=== PATIENT | male | born 1960 ===

== ENCOUNTER 2022-08-09 14:15 | Inpatient (IN) ==
[2022-08-09] MEDS ORDERED: ALBUTEROL/IPRATROPIUM 3 ML NEB RESP TX STA (14:51)
[2022-08-09] MEDS ORDERED: methylPREDNISolone SOD SUC 40 MG/1 ML VIAL IV STA (14:51)
[2022-08-09 15:19] LABS: Basophils # 0.1 10*3/uL (0.0-0.2); Basophils % 0.5 % (0.0-0.8); Eosinophils # 0.1 10*3/uL (0.0-0.87); Eosinophils % 0.8 % (0.00-10.9); Hematocrit 40.8 VOL% (42.0-52.0); Hemoglobin 13.3 GM/DL (14.0-18.0); Immature Granulocytes % 1.3 %; Immature Granulocytes Absolute 0.12 #; Lymphocytes % 11.1 % (21.2-54.2); Mean Corpuscular HGB Conc 32.6 GM/DL (32-36); Mean Platelet Volume 8.8 FL (9.6-12.0); Monocytes # 1.5 10*3/uL (0.11-0.8); Monocytes % 16.1 % (1.7-12.7); Neutrophils % 70.2 % (38.7-73.9); Platelet Count 251 T/CUMM (130-400); Red Blood Count 4.34 MC/CUMM (3.8-5.5); Red Cell Distribution Width 14.6 % (9.3-17.3); White Blood Count 9.1 T/CUMM (4-12)
[2022-08-09 15:29] LABS: Calcium 7.8 MG/DL (8.5-10.1); Osmolality,Calculated 259.7 MOS/KG (273-304); Potassium 3.9 MMOL/L (3.5-5.1)
[2022-08-09 15:48] LABS: Eosinophils 2 % (0-10); Lymphocytes 9 % (20-55); Total Cells Counted 100
[2022-08-09] MEDS ORDERED: cefTRIAXone 1,000 MG in SODIUM CHLORIDE 0.9% 100 ML IV STA (16:32)
[2022-08-09] MEDS ORDERED: CETIRIZINE 10 MG TABLET PO PRN (18:12)
[2022-08-09] MEDS ORDERED: AZITHROMYCIN INJ 500 MG in SODIUM CHLORIDE 0.9% 250 ML IV STA (18:14)
[2022-08-09] MEDS ORDERED: ALBUTEROL 2.5 MG/3 ML NEB RESP TX PRN (18:15)
[2022-08-09 18:27] LABS: Albumin 2.2 G/DL (3.4-5.0); Bilirubin,Direct 0.1 MG/DL (0.0-0.20); Bilirubin,Indirect 0.4 MG/DL (0.0-1.0); Bilirubin,Total 0.5 MG/DL (0.20-1.00); Total Protein 6.6 G/DL (6.4-8.2)
[2022-08-09] MEDS: ALBUTEROL/IPRATROPIUM 3 ML NEB RESP TX SCH (18:55)
[2022-08-09] MEDS: DOCUSATE SODIUM 100 MG CAPSULE PO SCH (20:13)
[2022-08-09] MEDS: MONTELUKAST 10 MG TABLET PO SCH (20:13)
[2022-08-09] MEDS: ENOXAPARIN 40 MG/0.4 ML SYRINGE SUBCUT SCH (20:14)
[2022-08-09] MEDS ORDERED: chlordiazePOXIDE 10 MG CAPSULE PO PRN (21:00)
[2022-08-09] MEDS: SODIUM CHLORIDE 0.9% 1,000 ML IV SCH (22:10)
[2022-08-09] MEDS: methylPREDNISolone SOD SUC 40 MG/1 ML VIAL IV SCH (23:09)
[2022-08-10] MEDS: ALBUTEROL/IPRATROPIUM 3 ML NEB RESP TX SCH ×4 (00:24→19:19)
[2022-08-10 01:44] LABS: Basophils % 0.2 % (0.0-0.8); Hematocrit 42.8 VOL% (42.0-52.0); Hemoglobin 13.8 GM/DL (14.0-18.0); Immature Granulocytes % 1.2 %; Immature Granulocytes Absolute 0.07 #; Lymphocytes # 0.3 10*3/uL (1.4-4.0); Lymphocytes % 4.7 % (21.2-54.2); Mean Corpuscular HGB Conc 32.2 GM/DL (32-36); Mean Corpuscular Volume 94.5 FL (87-102); Mean Platelet Volume 8.8 FL (9.6-12.0); Monocytes # 0.2 10*3/uL (0.11-0.8); Monocytes % 2.6 % (1.7-12.7); Neutrophils % 91.3 % (38.7-73.9); Platelet Count 228 T/CUMM (130-400); Red Blood Count 4.53 MC/CUMM (3.8-5.5); Red Cell Distribution Width 14.4 % (9.3-17.3); White Blood Count 5.8 T/CUMM (4-12)
[2022-08-10 02:02] LABS: Osmolality,Calculated 270.4 MOS/KG (273-304); Potassium 3.9 MMOL/L (3.5-5.1)
[2022-08-10] MEDS: methylPREDNISolone SOD SUC 40 MG/1 ML VIAL IV SCH ×3 (06:27→21:26)
[2022-08-10] MEDS: DOCUSATE SODIUM 100 MG CAPSULE PO SCH ×2 (09:29→20:00)
[2022-08-10] MEDS: PANTOPRAZOLE 40 MG TABLET PO SCH (09:29)
[2022-08-10] MEDS: SODIUM CHLORIDE 0.9% 1,000 ML IV SCH ×2 (09:30→19:51)
[2022-08-10] MEDS: cefTRIAXone 1,000 MG in SODIUM CHLORIDE 0.9% 100 ML IV SCH (19:51)
[2022-08-10] MEDS: ENOXAPARIN 40 MG/0.4 ML SYRINGE SUBCUT SCH (20:00)
[2022-08-10] MEDS: MONTELUKAST 10 MG TABLET PO SCH (20:00)
[2022-08-10] MEDS: buPROPion SR 100 MG TABLET PO SCH (21:29)
[2022-08-10] MEDS: AZITHROMYCIN INJ 250 MG in SODIUM CHLORIDE 0.9% 250 ML IV SCH (21:30)
[2022-08-11] MEDS: ALBUTEROL/IPRATROPIUM 3 ML NEB RESP TX SCH ×4 (00:09→19:35)
[2022-08-11 05:13] LABS: Basophils % 0.1 % (0.0-0.8); Hematocrit 38.6 VOL% (42.0-52.0); Hemoglobin 12.7 GM/DL (14.0-18.0); Immature Granulocytes % 0.9 %; Lymphocytes # 0.9 10*3/uL (1.4-4.0); Lymphocytes % 8.1 % (21.2-54.2); Mean Corpuscular HGB Conc 32.9 GM/DL (32-36); Mean Corpuscular Volume 94.4 FL (87-102); Mean Platelet Volume 8.8 FL (9.6-12.0); Monocytes # 0.8 10*3/uL (0.11-0.8); Monocytes % 7.2 % (1.7-12.7); Neutrophils % 83.7 % (38.7-73.9); Platelet Count 243 T/CUMM (130-400); Red Blood Count 4.09 MC/CUMM (3.8-5.5); Red Cell Distribution Width 14.1 % (9.3-17.3); White Blood Count 10.7 T/CUMM (4-12)
[2022-08-11 05:35] LABS: Osmolality,Calculated 276.7 MOS/KG (273-304); Potassium 4.5 MMOL/L (3.5-5.1)
[2022-08-11] MEDS: DOCUSATE SODIUM 100 MG CAPSULE PO SCH ×2 (08:42→21:03)
[2022-08-11] MEDS: buPROPion SR 100 MG TABLET PO SCH ×2 (08:43→21:03)
[2022-08-11] MEDS: methylPREDNISolone SOD SUC 40 MG/1 ML VIAL IV SCH ×2 (08:43→21:03)
[2022-08-11] MEDS: PANTOPRAZOLE 40 MG TABLET PO SCH (08:43)
[2022-08-11] MEDS: SODIUM CHLORIDE 0.9% 1,000 ML IV SCH (21:00)
[2022-08-11] MEDS: cefTRIAXone 1,000 MG in SODIUM CHLORIDE 0.9% 100 ML IV SCH (21:02)
[2022-08-11] MEDS: MONTELUKAST 10 MG TABLET PO SCH (21:03)
[2022-08-11] MEDS: ENOXAPARIN 40 MG/0.4 ML SYRINGE SUBCUT SCH ×2 (21:03→21:13)
[2022-08-11] MEDS: AZITHROMYCIN INJ 250 MG in SODIUM CHLORIDE 0.9% 250 ML IV SCH (21:40)
[2022-08-12 05:07] LABS: Basophils % 0.2 % (0.0-0.8); Hematocrit 40.3 VOL% (42.0-52.0); Immature Granulocytes % 1.1 %; Lymphocytes # 0.5 10*3/uL (1.4-4.0); Lymphocytes % 5.9 % (21.2-54.2); Mean Corpuscular HGB Conc 32.3 GM/DL (32-36); Mean Platelet Volume 9.3 FL (9.6-12.0); Monocytes # 0.3 10*3/uL (0.11-0.8); Monocytes % 3.9 % (1.7-12.7); Neutrophils % 88.9 % (38.7-73.9); Platelet Count 225 T/CUMM (130-400); Red Blood Count 4.24 MC/CUMM (3.8-5.5); Red Cell Distribution Width 14.3 % (9.3-17.3); White Blood Count 8.8 T/CUMM (4-12)
[2022-08-12 05:21] LABS: Calcium 7.4 MG/DL (8.5-10.1); Osmolality,Calculated 278.5 MOS/KG (273-304); Potassium 4.3 MMOL/L (3.5-5.1)
[2022-08-12] MEDS: ALBUTEROL/IPRATROPIUM 3 ML NEB RESP TX SCH ×2 (07:11)
[2022-08-12] MEDS: buPROPion SR 100 MG TABLET PO SCH (09:18)
[2022-08-12] MEDS: PANTOPRAZOLE 40 MG TABLET PO SCH (09:18)
[2022-08-12] MEDS: DOCUSATE SODIUM 100 MG CAPSULE PO SCH (09:18)
[2022-08-12] MEDS: methylPREDNISolone SOD SUC 40 MG/1 ML VIAL IV SCH (09:19)
[2022-08-12 11:52] VITALS: BP 116/67
== END 2022-08-12 12:57 | disposition home or self-care (01) | DRG 190 ==
LOC: N.ED 14:15 → SUATTDRO 18:08 → N.EDINP 18:08 → N.2E 19:20
PROVIDERS: ADMIT Hospitalist; ATTEND Family Medicine

== ENCOUNTER 2022-09-07 00:37 | Inpatient (IN) ==
[2022-09-07] MEDS ORDERED: ACETAMINOPHEN 325 MG TABLET PO PRN (03:04)
[2022-09-07] MEDS ORDERED: ALBUTEROL 2.5 MG/3 ML NEB RESP TX PRN (03:04)
[2022-09-07] MEDS ORDERED: ONDANSETRON 4 MG/2 ML VIAL IV PRN (03:04)
[2022-09-07 04:27] LABS: Basophils # 0.1 10*3/uL (0.0-0.2); Basophils % 0.9 % (0.0-0.8); Eosinophils # 0.3 10*3/uL (0.0-0.87); Hematocrit 41.3 VOL% (42.0-52.0); Hemoglobin 13.2 GM/DL (14.0-18.0); Immature Granulocytes % 1.1 %; Immature Granulocytes Absolute 0.11 #; Lymphocytes # 1.2 10*3/uL (1.4-4.0); Lymphocytes % 11.3 % (21.2-54.2); Mean Corpuscular Volume 92.4 FL (87-102); Mean Platelet Volume 9.4 FL (9.6-12.0); Monocytes # 0.7 10*3/uL (0.11-0.8); Monocytes % 7.2 % (1.7-12.7); Neutrophils % 76.5 % (38.7-73.9); Platelet Count 321 T/CUMM (130-400); Red Blood Count 4.47 MC/CUMM (3.8-5.5); Red Cell Distribution Width 14.6 % (9.3-17.3); White Blood Count 10.2 T/CUMM (4-12)
[2022-09-07 04:46] LABS: Albumin 2.1 G/DL (3.4-5.0); Bilirubin,Total 0.4 MG/DL (0.20-1.00); Osmolality,Calculated 271.7 MOS/KG (273-304); Potassium 4.1 MMOL/L (3.5-5.1); Total Protein 6.2 G/DL (6.4-8.2)
[2022-09-07 04:53] LABS: Risk Ratio 2.46; Thyroid Stimulating Hormone 3.11 uIU/ml (0.358-3.74); VLDL Cholesterol 13.4 MG/DL
[2022-09-07 05:56] LABS: PT Patient Result 10.8 SECS (10.1-12.1); Partial Thromboplastin Time 34.5 SECS (23.7-32.9)
[2022-09-07] MEDS: DOCUSATE SODIUM 100 MG CAPSULE PO SCH ×2 (08:51→21:38)
[2022-09-07] MEDS: PANTOPRAZOLE 40 MG TABLET PO SCH (08:52)
[2022-09-07] MEDS: METOPROLOL SUCCINATE XL 25 MG TABLET PO SCH (13:51)
[2022-09-08 04:51] LABS: Basophils # 0.1 10*3/uL (0.0-0.2); Basophils % 0.8 % (0.0-0.8); Eosinophils # 0.5 10*3/uL (0.0-0.87); Eosinophils % 4.4 % (0.00-10.9); Hematocrit 38.9 VOL% (42.0-52.0); Hemoglobin 12.1 GM/DL (14.0-18.0); Immature Granulocytes % 0.8 %; Immature Granulocytes Absolute 0.08 #; Lymphocytes # 1.1 10*3/uL (1.4-4.0); Lymphocytes % 10.5 % (21.2-54.2); Mean Corpuscular HGB Conc 31.1 GM/DL (32-36); Mean Corpuscular Volume 94.4 FL (87-102); Mean Platelet Volume 9.1 FL (9.6-12.0); Monocytes # 0.9 10*3/uL (0.11-0.8); Monocytes % 8.6 % (1.7-12.7); Neutrophils % 74.9 % (38.7-73.9); Platelet Count 316 T/CUMM (130-400); Red Blood Count 4.12 MC/CUMM (3.8-5.5); Red Cell Distribution Width 14.6 % (9.3-17.3); White Blood Count 10.6 T/CUMM (4-12)
[2022-09-08 05:08] LABS: Osmolality,Calculated 274.5 MOS/KG (273-304); Potassium 4.3 MMOL/L (3.5-5.1)
[2022-09-08] MEDS ORDERED: SODIUM CHLORIDE 0.9% 1,000 ML IV SCH (09:30)
[2022-09-08] MEDS: METOPROLOL SUCCINATE XL 25 MG TABLET PO SCH ×2 (09:50→09:56)
[2022-09-08] MEDS: DOCUSATE SODIUM 100 MG CAPSULE PO SCH ×2 (09:55→21:50)
[2022-09-08] MEDS: PANTOPRAZOLE 40 MG TABLET PO SCH (09:55)
[2022-09-08] MEDS: ALBUTEROL/IPRATROPIUM 3 ML NEB RESP TX SCH ×2 (12:52→18:04)
[2022-09-08] MEDS ORDERED: LORazepam 2 MG/1 ML VIAL IV PRN (14:04)
[2022-09-08] MEDS: FOLIC ACID 1 MG TABLET PO SCH (16:01)
[2022-09-08] MEDS: THIAMINE 100 MG TABLET PO SCH (16:01)
[2022-09-09] MEDS: ALBUTEROL/IPRATROPIUM 3 ML NEB RESP TX SCH ×3 (00:20→13:55)
[2022-09-09 04:34] LABS: Basophils # 0.1 10*3/uL (0.0-0.2); Basophils % 0.5 % (0.0-0.8); Eosinophils # 0.3 10*3/uL (0.0-0.87); Eosinophils % 2.8 % (0.00-10.9); Hematocrit 35.8 VOL% (42.0-52.0); Hemoglobin 11.5 GM/DL (14.0-18.0); Immature Granulocytes % 0.5 %; Immature Granulocytes Absolute 0.06 #; Lymphocytes # 1.1 10*3/uL (1.4-4.0); Lymphocytes % 9.4 % (21.2-54.2); Mean Corpuscular HGB Conc 32.1 GM/DL (32-36); Mean Corpuscular Volume 93.5 FL (87-102); Mean Platelet Volume 8.9 FL (9.6-12.0); Monocytes % 8.6 % (1.7-12.7); Neutrophils % 78.2 % (38.7-73.9); Platelet Count 281 T/CUMM (130-400); Red Blood Count 3.83 MC/CUMM (3.8-5.5); Red Cell Distribution Width 14.6 % (9.3-17.3); White Blood Count 11.6 T/CUMM (4-12)
[2022-09-09 05:01] LABS: Calcium 7.9 MG/DL (8.5-10.1); Osmolality,Calculated 273.7 MOS/KG (273-304); Potassium 4.1 MMOL/L (3.5-5.1)
[2022-09-09] MEDS: DOCUSATE SODIUM 100 MG CAPSULE PO SCH (09:18)
[2022-09-09] MEDS: THIAMINE 100 MG TABLET PO SCH (09:18)
[2022-09-09] MEDS: FOLIC ACID 1 MG TABLET PO SCH (09:19)
[2022-09-09] MEDS: METOPROLOL SUCCINATE XL 25 MG TABLET PO SCH (09:19)
[2022-09-09] MEDS: PANTOPRAZOLE 40 MG TABLET PO SCH (09:19)
[2022-09-09 13:27] VITALS: BP 98/61
== END 2022-09-09 15:36 | disposition home or self-care (01) | DRG 309 ==
LOC: N.TELEN → SUATTDRO 02:19
PROVIDERS: ADMIT Internal Medicine; ATTEND Internal Medicine Geriatric Medicine